=== PATIENT | male | born 1945 | race Caucasian/White ===

== ENCOUNTER 2018-01-16 13:58 | Emergency (ER) | payer MEDICARE, OTHER ==
[2018-01-16] MEDS: DEXAMETHASONE 4 MG TAB PO (15:31)
[2018-01-16] MEDS: traMADol 50 MG TAB PO (15:31)
[2018-01-16] MEDS: ACYCLOVIR 800 MG TAB PO (15:31)
== END 2018-01-16 15:35 | disposition home or self-care (01) ==
LOC: FTE 13:58
DX: B02.9 Zoster without complications (principal); I10 Essential (primary) hypertension; Z79.82 Long term (current) use of aspirin; Z79.84 Long term (current) use of oral hypoglycemic drugs
CPT/HCPCS: 99284

== ENCOUNTER 2018-07-08 14:59 | Emergency (ER) | payer MEDICARE, OTHER ==
[2018-07-08] MEDS: KETOROLAC 30 MG INJ IM (16:50)
== END 2018-07-08 17:12 | disposition home or self-care (01) ==
LOC: FTE 17:12
DX: M54.5 Low back pain (principal); I10 Essential (primary) hypertension; Z79.82 Long term (current) use of aspirin; Z79.84 Long term (current) use of oral hypoglycemic drugs
CPT/HCPCS: 96372; 99284-25; J1885